=== PATIENT | male | born 1975 | race Caucasian/White ===

== ENCOUNTER 2019-06-28 07:03 | Outpatient (CLI) | payer OTHER, SELFPAY ==
[2019-06-28 07:15] VITALS: BMI 36.6
--- NOTE | 2019-06-28 07:24 | ECG_ITS ---
NAME OF STUDY: DOBUTAMINE STRESS ECHOCARDIOGRAM INDICATION: [Chest Pain, ] This study is dictated under a different electronic health record. Please see that EHR for details. Electronically Signed On 06-28-2019 15:41:14 CDT by Patrick Andrews M.D. [email or web address]
--- NOTE | 2019-06-28 07:42 | USCV_ITS ---
Meena Leong Age: 44 Gender: M : 1975 Exam Date: 06/28/2019 07:34 Ordering Phys: Efra Hinojosa MD ([email or web address] Technologist: Ld Stanton Exam Location: [facility] – [place] Indication: Chest pain Rhythm: Sinus Patient History: HTN, DM, HLD, Family Hx CAD Cardiac Medications: Medications in past 24 hours: Losartan Contrast: Total Dose (mL): Stress Results Protocol: Pharmacologic Peak Dose (???g/kg/min): 40 Duration (min:sec): 11:40 Atropine:(mg) 0.5 Target HR: 149 Double Product: 15042 Resting HR: 88 Resting BP: 151 / 120 Peak HR: 149 Peak BP: 209 / 120 Max Predicted HR: 175 85 % Max Predicted HR Stress Summary: The hemodynamic response to stress was normal. The patient's target heart rate was achieved. BP Response: Blood pressure 151/120 at baseline. Maximum blood pressure 209/95. Hypertensive blood pressure response Reason for Termination: The patients target heart rate was achieved Cardiac Symptoms: None ECG Analysis Resting EKG: Resting EKG reveals sinus rhythm with normal axis and intervals and is a normal tracing. Stress EKG: No ST or T wave changes associated with dobutamine infusion. Rare premature ventricular contraction at the end of the infusion. Arrhythmia: Rare PVCs MEASUREMENTS (Male/Female) Normal Values FINDINGS Baseline echocardiogram reveals normal chamber sizes and normal wall motion. With dobutamine infusion there were no wall motion disturbances to suggest ischemia. CONCLUSIONS Dobutamine stress echo without evidence for ischemia or infarction. Dr. Patrick Andrews MD (Electronically Signed) Final Date: 28 June 2019 15:43 S
[2019-06-28] MEDS: sodium chloride 0.9% 250 ML 75 ML IV (07:50)
[2019-06-28] MEDS: DOBUTtamine 200 MG in sodium chloride 0.9% 34 ML 18 MG IV (07:53)
[2019-06-28] MEDS: atropine 0.1 mg/mL Syr 10 mL 0.5 MG IVP (07:59)
[2019-06-28 08:10] VITALS: BP 173/91; PULSE 100
== END 2019-06-28 07:04 | disposition home or self-care (01) ==
PROVIDERS: Family Provider Nurse Practitioner; PCP Nurse Practitioner; Visit Provider Internal Medicine Cardiovascular Disease
DX: R94.31 Abnormal electrocardiogram [ECG] [EKG] (principal); I10 Essential (primary) hypertension; E11.9 Type 2 diabetes mellitus without complications; E78.5 Hyperlipidemia, unspecified
CPT/HCPCS: 93017; 93350; J0461; J1250; J7050

== ENCOUNTER 2020-08-25 08:49 | Outpatient (CLI) | payer OTHER, SELFPAY ==
--- NOTE | 2020-08-25 09:03 | FL_ITS ---
WS: [id number] MODIFIED BARIUM SWALLOW HISTORY: Other dysphagia FLUOROSCOPY TIME: 1.2 minutes. Modified barium swallow was performed by the speech pathologist. Fluoroscopy was provided with the pa tient in a lateral projection. Multiple food consistencies were provided. Patient swallowed all food consistencies without difficulty. No aspiration. There is a very minimal a [place] of penetration during thin liquids. Patient swallowed the barium tablet without difficulty. FL/FL barium swallow modifd [id number] IMPRESSION: 1. No aspiration. 2. No significant swallowing deficits. Please see speech therapist report also for recommendations.
== END 2020-08-25 08:50 | disposition home or self-care (01) ==
LOC: RAD 08:52
PROVIDERS: PCP Nurse Practitioner; Visit Provider Specialist
DX: R13.10 Dysphagia, unspecified (principal)
CPT/HCPCS: 74230; 92611

== ENCOUNTER 2020-08-26 09:25 | Outpatient (CLI) | payer OTHER, SELFPAY ==
--- NOTE | 2020-08-26 09:34 | CT_ITS ---
WS: [id number] CT NECK TECHNIQUE: Contrast-enhanced CT of the neck with coronal and sagittal reformatted images. CLINICAL INFORMATION: DYSPHAGIA COMPARISON: None. DLP: 429.[address] scans at [facility] use at least one of these dose optimization techniques: automat ed exposure control; mA and/or kV adjustment per patient size (includes targeted exams where dose is matched to clinical indication); or iterative reconstruction. FINDINGS: Parotid glands are normal. Normal submandibular glands. Prominent lobulated enlarged uvula with marke d narrowing of the oropharynx. Prominent enhancing inguinal tonsils. Normal epiglottis. No evidence o f glottic or subglottic mass. Normal piriform sinuses. Numerous prominent bilateral cervical chain lymph nodes not pathologically enlarged. These are likely reactive. Mastoid air cells are well aerated. Mild spondylitic changes cervical spine. CT/CT neck w con* [id number] IMPRESSION: 1. Prominent lobulated uvula with narrowing of the posterior oropharynx. Recom mend direct visualization. 2. Prominent enhancing wall tonsils with filling of the vallecula. Recommend d irect visualization. 3. Normal glottis and subglottic airway. 4. Prominent bilateral cervical chain lymph nodes not pathologically enlarged. These are likely reactive. 5. No other significant findings.
[2020-08-26] MEDS: iohexol 300 mg/mL 100 mL Btl IV (09:59)
--- NOTE | 2020-08-26 10:24 | FL_ITS ---
WS: [id number] ESOPHAGRAM TECHNIQUE: Double contrast examination was performed with thin and thick barium. Upright and DÍAZ imag es were obtained. CLINICAL INFORMATION: DYSPHAGIA COMPARISON: None. FINDINGS: Delayed transit of the barium tablet in the posterior oropharynx due to oropharyngeal airwa y narrowing at the level of the uvula also seen on the contrast-enhanced neck CT. Swallowing: No evidence of aspiration or penetration. Esophagus: Mild esophageal dysmotility. No stricture or narrowing. No significant hiatal hernia. Gastroesophageal reflux: No significant reflux in the upright or supine imaging Fluoroscopy time: 2.6 minutes. FL/FL barium swallow [id number] IMPRESSION: 1. Mild esophageal dysmotility. No stricture or obstructing mass. 2. No significant esophageal hiatal hernia. No active reflux. 3. Delayed transit of the barium tablet in the oropharynx/hypopharynx due to p haryngeal stenosis better seen on the neck CT. Prominent uvula contributes to s tenosis.
== END 2020-08-26 09:26 | disposition home or self-care (01) ==
LOC: RADWPI 09:27
PROVIDERS: PCP Nurse Practitioner; Visit Provider Specialist
DX: R13.10 Dysphagia, unspecified (principal)
CPT/HCPCS: 70491; 74220; Q9967

== ENCOUNTER 2020-09-15 10:26 | Outpatient (CLI) | payer OTHER, SELFPAY ==
--- NOTE | 2020-09-15 11:00 | USCV_ITS ---
Meena Leong Age: 45 Gender: M : 1975 Exam Date: 09/15/2020 10:45 Ordering Phys: Efra Hinojosa MD ([email or web address]) Technologist: Exam Location: [facility] [place] Indication: HISTORY: PROCEDURES: Bilateral duplex Venous Insufficiency study of the Deep and Superficial systems was carried out according to normal protocol with the patient in supine positon for deep system and dependent position for the superficial system. FINDINGS: All deep veins demonstrated compressibility without evidence of intraluminal thrombus or increased echogenicity. Spectral analysis of Doppler signals demonstrates normal response to compression maneuvers indicating patency without obstruction. Reflux determinations were made with the patient in the dependent position, the weight being on the contralateral leg. Vein measurements and reflux times are listed below were applicable. THERE IS SIGNIFICANT REFLUX ON RT SIDE THE PATIENT WOULD BE A GOOD CANIDATE FOR ABLATION. CONCLUSIONS 1. No evidence of DVT in the above-mentioned identifiable veins. 2. Significant venous reflux of greater than 500 ms were noted at the mid, distal and below-knee greater saphenous vein segments on the right side. These venous segments were measuring 0.41 to 0.46 cm in diameter and they were more than 1 cm deep from the surface. 3. No significant venous reflux on the left side Dr Efra Hinojosa MD FAC (Electronically Signed) Final Date: 16 September 2020 08:36 S
== END 2020-09-15 10:27 | disposition home or self-care (01) ==
PROVIDERS: PCP Nurse Practitioner; Visit Provider Internal Medicine Cardiovascular Disease
DX: I87.2 Venous insufficiency (chronic) (peripheral) (principal); R23.8 Other skin changes
CPT/HCPCS: 93970

== ENCOUNTER 2020-10-12 20:00 | Outpatient (CLI) | payer OTHER, SELFPAY | END 2020-10-12 20:01 | disposition home or self-care (01) | LOC: SLEEP 10-13 09:51 | PROVIDERS: PCP Nurse Practitioner; Visit Provider Specialist | DX: G47.33 Obstructive sleep apnea (adult) (pediatric) (principal) | CPT/HCPCS: 95810 ==

== ENCOUNTER → 2021-02-09 08:08 | Outpatient (BNVA) | payer OTHER, SELFPAY | PROVIDERS: PCP Nurse Practitioner; Referring Provider Nurse Practitioner; Visit Provider Internal Medicine | DX: E11.65 Type 2 diabetes mellitus with hyperglycemia (principal); E66.9 Obesity, unspecified; E78.2 Mixed hyperlipidemia; Z79.84 Long term (current) use of oral hypoglycemic drugs; Z68.35 Body mass index [BMI] 35.0-35.9, adult | CPT/HCPCS: 99204 ==

== ENCOUNTER → 2021-05-10 09:09 | Outpatient (BNVA) | payer OTHER, SELFPAY | PROVIDERS: PCP Nurse Practitioner; Visit Provider Internal Medicine | DX: E11.65 Type 2 diabetes mellitus with hyperglycemia (principal); E66.9 Obesity, unspecified; E78.2 Mixed hyperlipidemia; Z68.36 Body mass index [BMI] 36.0-36.9, adult; Z79.84 Long term (current) use of oral hypoglycemic drugs | CPT/HCPCS: 99214 ==

== ENCOUNTER → 2021-07-29 14:11 | Outpatient (BNVA) | payer OTHER, SELFPAY | PROVIDERS: PCP Nurse Practitioner; Visit Provider Internal Medicine | DX: E11.65 Type 2 diabetes mellitus with hyperglycemia (principal); E78.2 Mixed hyperlipidemia; E66.9 Obesity, unspecified; Z68.34 Body mass index [BMI] 34.0-34.9, adult; Z79.84 Long term (current) use of oral hypoglycemic drugs | CPT/HCPCS: 99214 ==

== ENCOUNTER → 2021-11-02 14:00 | Outpatient (BNVA) | payer OTHER, SELFPAY | PROVIDERS: PCP Nurse Practitioner; Visit Provider Internal Medicine | DX: E11.65 Type 2 diabetes mellitus with hyperglycemia (principal); E78.2 Mixed hyperlipidemia; E66.9 Obesity, unspecified; Z79.84 Long term (current) use of oral hypoglycemic drugs; Z68.33 Body mass index [BMI] 33.0-33.9, adult | CPT/HCPCS: 99214 ==

== ENCOUNTER → 2022-02-01 13:57 | Outpatient (BNVA) | payer OTHER, SELFPAY | PROVIDERS: PCP Nurse Practitioner; Visit Provider Internal Medicine | DX: E11.65 Type 2 diabetes mellitus with hyperglycemia (principal); E78.2 Mixed hyperlipidemia; Z79.84 Long term (current) use of oral hypoglycemic drugs | CPT/HCPCS: 99214 ==

== ENCOUNTER 2022-02-18 12:03 | Outpatient (CLI) | payer OTHER, SELFPAY ==
--- NOTE | 2022-02-18 12:08 | CT_ITS ---
WS: [id number] CT HEAD TECHNIQUE: Noncontrast CT of the head obtained from the skullbase to the vertex. CLINICAL INFORMATION: MEMORY LOSS/HX OF MULTIPLE HEAD INJURIES COMPARISON: None. DLP: 1137.[address] scans at [facility] use at least one of these dose optimization techniques: automated e xposure control; mA and/or kV adjustment per patient size (includes targeted exams where dose is matc hed to clinical indication); or iterative reconstruction. FINDINGS: No evidence of intracranial hemorrhage or mass effect. Ventricular system and basal cisterns are patel nt. No extra-axial fluid collections. No evidence of mass or mass effect. Normal garcia-white different iation. Mild mucosal thickening in the paranasal sinuses. Partial opacification of the ethmoid air cells and sphenoid sinuses. Frontal sinuses are well aerated. Mastoid air cells are well aerated aerated. Mild mucosal thickening LEFT mastoid tip. Normal posterior nasopharynx. CT/CT head wo con* [id number] IMPRESSION: 1. No evidence of intracranial hemorrhage or mass effect. 2. Normal garcia-white differentiation. 3. Mild ethmoid and sphenoid sinusitis. 4. Mild mucosal thickening LEFT mastoid air cells. 5. No acute intracranial findings.
== END 2022-02-18 12:04 | disposition home or self-care (01) ==
LOC: RAD 12:04
PROVIDERS: PCP Nurse Practitioner; Visit Provider Nurse Practitioner
DX: R41.3 Other amnesia (principal); J32.2 Chronic ethmoidal sinusitis; J32.3 Chronic sphenoidal sinusitis; Z87.828 Personal history of other (healed) physical injury and trauma
CPT/HCPCS: 70450

== ENCOUNTER 2022-07-28 09:17 | Outpatient (CLI) | payer OTHER, SELFPAY ==
[2022-07-28 10:03] LABS: Alanine Aminotransferase 42 U/L (0-41); Albumin Level 4.3 g/dL (3.5-5.2); Alkaline Phosphatase 77 U/L (40-130); Anion Gap 14.4 (5-19); Aspartate Amino Transferase 28 U/L (0-40); Blood Urea Nitrogen 23 mg/dL (6-20); Carbon Dioxide 29 mmol/L (22-29); Chloride 103 mmol/L (98-107); Chol HDL Ratio 4.02 mg/dL (1.0-5.00); Cholesterol 165 mg/dL (0-200); Globulin 2.9 g/dL (1.3-4.6); Glomerular Filtration Rate 71.4 mL/min (90-130); Glucose 165 mg/dL (65-115); HDL Cholesterol 41 mg/dL (60-100); LDL Cholesterol Calculated 82 mg/dL (50-129); Osmolality Calculated 301 mOsm/kg (285-295); Potassium 4.4 mmol/L (3.5-5.1); Sodium 142 mmol/L (136-145); Total Bilirubin 0.5 mg/dL (0.15-1.2); Total Protein 7.2 g/dL (6.6-8.7); Triglycerides 212 mg/dL (0-150)
[2022-07-28 10:07] LABS: Estmated Average Glucose 137; Hemoglobin A1C 6.4 % (4.0-6.0)
[2022-07-28 14:17] LABS: Creatinine Urine, Random 64 mg/dL (39-259); Microalbum Creatinine Ratio Ur 16 mg/dL (0-20); Microalbumin Random Urine 1 ug/dL (0-20)
== END 2022-07-28 09:18 | disposition home or self-care (01) ==
LOC: LAB 09:19
PROVIDERS: PCP Nurse Practitioner; Visit Provider Internal Medicine
DX: E11.65 Type 2 diabetes mellitus with hyperglycemia (principal); E78.2 Mixed hyperlipidemia
CPT/HCPCS: 36415; 80053; 80061; 82044; 83036

== ENCOUNTER → 2022-08-11 13:18 | Outpatient (BNVA) | payer OTHER, SELFPAY | PROVIDERS: PCP Nurse Practitioner; Visit Provider Internal Medicine | DX: E11.65 Type 2 diabetes mellitus with hyperglycemia (principal); E78.2 Mixed hyperlipidemia; Z79.84 Long term (current) use of oral hypoglycemic drugs | CPT/HCPCS: 99214 ==

== ENCOUNTER 2023-01-09 20:11 | Emergency (ER) | payer OTHER, SELFPAY ==
[2023-01-09 20:19] VITALS: BMI 34.5
[2023-01-09 20:21] VITALS: BP 139/99; PULSE 85; RESP 16; TEMP 36.4; O2SAT 95
--- NOTE | 2023-01-09 20:25 | W.ED.EXTPRO ---
HPI - Extremity Problem General: Chief complaint: Extremity Problem,Nontraumatic Stated complaint: right leg numbness, and pain Time Seen by Provider: 01/09/23 20:20 History of Present Illness: 47-year-old male patient comes in today for complaints of pain radiating down his right leg to calf. Patient also reports paresthesias in the leg. Patient has a history of lumbar surgery and diabetes mellitus. Patient reports no fever or chills. Patient appears nontoxic. Patient reports symptoms been going on for about 2 weeks now. Patient has been seen at primary care office and given a shot of Toradol and started on azithromycin. Azithromycin was used for anti-inflammatory effects. Patient completed the medicine but continues to have pain and discomfort which brought him to the ER tonight. Review of Systems General: Reports: 10 or more systems reviewed and unremarkable except in HPI and below Musc: Reports: back pain and extremity pain [facility] ED PFSH: Medical History Abnormal EKG An EKG was done in the office. It revealed normal sinus rhythm with a nonspecific T wave changes in the anterolateral leads. Abnormal skin color Allergic rhinitis Diabetes Elevated C-reactive protein (CRP) Gout Hyperlipidemia Hypertension Obesity (BMI 30-39.9) Sleep apnea Could not use CPAP Surgical History History of adenectomy Previous back surgery S/P tonsillectomy Family History Father No problems noted. Family/Other Diabetes Suicide Other Cancer Cirrhosis Denies family history of CAD (coronary artery disease) Clotting disorder Dementia Anesthesia complication Bleeding disorder Lung disease Stroke Social History Smoking and tobacco status: never smoked Alcohol intake: current Alcohol intake frequency: holidays/special occasions only Substance/Drug Use: current Substance/Drug use frequency: Special occassions/opportunity only Physical Exam Const: COMMON NORMALS: alert HENMT: COMMON NORMALS: normocephalic HEAD & SCALP: normocephalic Neck/C-Spine: COMMON NORMALS: full ROM Resp: COMMON NORMALS: normal respiratory effort Cardio: COMMON NORMALS: regular rate RATE: regular rate Back/Pelvis: THORACIC SPINE/UPPER BACK: Yes normal to inspection LUMBAR SPINE/LOWER BACK: Yes lumbar spinal tenderness (L4-L5 area) and Yes paraspinal muscle tenderness Extremity: COMMON NORMALS: normal to inspection and no pedal edema Neuro: SENSORIUM/ORIENTATION: Yes alert and Yes other (Increase sensitivity to right lower extremity) Skin: COMMON NORMALS: no rashes or lesions noted and turgor normal GENERAL SKIN EXAM: no rashes or lesions noted and turgor normal Course Vital Signs: Vital signs: Vital Signs Temperature 97.6 F 01/09/23 20:21 Pulse Rate 85 01/09/23 20:21 Respiratory Rate 16 01/09/23 20:21 Blood Pressure 139/99 01/09/23 20:21 Pulse Oximetry 95 01/09/23 20:21 Oxygen Delivery Me thod Room Air 01/09/23 20:21 MDM - Extremity (Nontraumatic) Medical Decision Making 47-year-old male patient comes in today for complaints of low back and right lower extremity pain and discomfort. On exam patient has no edema to the extremity. No redness or induration is noted to the extremity. Patient does have some tenderness along L5 L4 area of the lumbar spine. Patient has increased muscle tightness and tenderness of the right lumbar paraspinous muscles. Differential diagnosis includes but not limited to intervertebral disc disease, facet arthropathy, lumbar radiculopathy, cauda equina syndrome. No signs of serious illness or injury is noted. Believe this is an exacerbation of chronic pain. Patient was given a shot of Toradol and 1 hydrocodone tablet in the ER. Patient be written for some hydrocodone and celecoxib 200 mg to use until follow-up with primary care on Monday for reevaluation and medication changes as needed. Requested patient contact Dr. Saenz's office orthopedic spine for further evaluation and treatment through referral. No radiology studies performed this visit Discharge Plan Discharge Patient Disposition: Home Clinical Impression: Left lumbar radiculopathy Condition: Stable Prescriptions: New hydrocodone-acetaminophen 7.5-325 mg tablet 1 tab PO Q8H PRN (Reason: pain (scale score 7-10)) Qty: 12 0RF celecoxib 200 mg capsule 200 mg PO BID Qty: 20 0RF No Action amlodipine 10 mg tablet 10 mg PO DAILY metformin 1,000 mg tablet 1,000 mg PO BID Jardiance 25 mg tablet 25 mg PO DAILY Qty: 90 3RF Rx Instructions: Take one tablet by mouth daily. losartan 100 mg tablet 100 mg PO DAILY 30 Days Qty: 30 5RF atorvastatin 40 mg tablet 40 mg PO DAILY pregabalin [Lyrica] 150 mg capsule 150 mg PO BID (DME) Dexcom G6 Production Machine Operator Misc See Rx Instructions .Route Qty: 1 0RF Rx Instructions: Check BS 4 times a day. (DME) Dexcom G6 Transmitter Device See Rx Instructions .Route Qty: 3 3RF Rx Instructions: Change every 90 days. Ozempic 1 mg/dose (2 mg/1.5 mL) pen injector 1 mg SUBCUT .WEEKLY Qty: 3 3RF Rx Instructions: Administer 1 mg subcut weekly Victoza 3-Mario 0.6 mg/0.1 mL (18 mg/3 mL) pen injector 1.2 mg SUBCUT DAILY Qty: 18 3RF (DME) Dexcom G6 Sensor Device See Rx Instructions .Route Qty: 9 0RF Rx Instructions: Change every 10 days. Discharge Orders: Discharge ED (Routine); Ordered 01/09/23 Ordered By: Julián Barrientos Referrals: Joey Saenz DO [Physician] - Betty Shanks FNP [Primary Care Provider] - Discharge Diet: Usual diet Discharge Activity: Increase activity as tolerated Patient Instructions: Lumbar Radiculopathy (ED), Opioid Safety Activity Restrictions/Additional Instructions: Try to maintain activity as much as possible. Drink plenty of water with medications. Use ice or heat for further pain relief. Follow-up with primary physician primary care sports medicine as needed. Keep appointment for Monday with with provider for changes in your medication. Return to ED for worsening symptoms such as loss of bowel or bladder control, fever greater than 100.4, or new concerns. Coding Level of Care Code ED Road Consultant for Sonia Mullen
[2023-01-09] MEDS: HYDROcodone-acetaminophen 7.5-325 mg Tablet 1 TAB PO (20:37)
[2023-01-09] MEDS: ketorolac 60 mg/2 mL INJ IM (20:37)
[2023-01-09 20:57] VITALS: BP 139/99; PULSE 85; RESP 16; TEMP 36.4; O2SAT 95
== END 2023-01-09 20:59 | disposition home or self-care (01) ==
PROVIDERS: Emergency Provider Nurse Practitioner Family; PCP Nurse Practitioner
DX: M54.16 Radiculopathy, lumbar region (principal); Z79.84 Long term (current) use of oral hypoglycemic drugs; E11.9 Type 2 diabetes mellitus without complications; E78.5 Hyperlipidemia, unspecified; I10 Essential (primary) hypertension
CPT/HCPCS: 96372; 99284; J1885

== ENCOUNTER 2023-01-17 08:45 | Outpatient (CLI) | payer OTHER, SELFPAY ==
[2023-01-17 10:04] LABS: Alanine Aminotransferase 53 U/L (0-41); Albumin Level 4.2 g/dL (3.5-5.2); Alkaline Phosphatase 74 U/L (40-130); Anion Gap 13.3 (5-19); Aspartate Amino Transferase 28 U/L (0-40); Blood Urea Nitrogen 12 mg/dL (6-20); Calcium 8.9 mg/dL (8.5-10.5); Carbon Dioxide 29 mmol/L (22-29); Chloride 103 mmol/L (98-107); Chol HDL Ratio 4.22 mg/dL (1.0-5.00); Cholesterol 152 mg/dL (0-200); Globulin 2.9 g/dL (1.3-4.6); Glomerular Filtration Rate 90.1 mL/min (90-130); Glucose 126 mg/dL (65-115); HDL Cholesterol 36 mg/dL (60-100); LDL Cholesterol Calculated 73 mg/dL (50-129); LDL HDL Ratio 2.03 RATIO (0.00-3.22); Osmolality Calculated 293 mOsm/kg (285-295); Potassium 4.3 mmol/L (3.5-5.1); Sodium 141 mmol/L (136-145); Total Bilirubin 0.5 mg/dL (0.15-1.2); Total Protein 7.1 g/dL (6.6-8.7); Triglycerides 214 mg/dL (0-150)
[2023-01-17 10:19] LABS: Estmated Average Glucose 143; Hemoglobin A1C 6.6 % (4.0-6.0)
[2023-01-17 13:02] LABS: Creatinine Urine, Random 118 mg/dL (39-259); Microalbum Creatinine Ratio Ur 8 mg/dL (0-20); Microalbumin Random Urine 1 ug/dL (0-20)
== END 2023-01-17 08:46 | disposition home or self-care (01) ==
PROVIDERS: PCP Nurse Practitioner; Visit Provider Internal Medicine
DX: E11.65 Type 2 diabetes mellitus with hyperglycemia (principal); E78.2 Mixed hyperlipidemia
CPT/HCPCS: 36415; 80053; 80061; 82044; 83036

== ENCOUNTER → 2023-01-27 10:46 | Outpatient (BNVA) | payer OTHER, SELFPAY | PROVIDERS: PCP Nurse Practitioner; Visit Provider Internal Medicine | DX: E78.2 Mixed hyperlipidemia; E11.65 Type 2 diabetes mellitus with hyperglycemia; Z79.84 Long term (current) use of oral hypoglycemic drugs | CPT/HCPCS: 99214 ==

== ENCOUNTER 2023-02-03 08:31 | Outpatient (CLI) | payer OTHER, SELFPAY ==
--- NOTE | 2023-02-03 08:37 | MR_ITS ---
WS: [id number] MRI LUMBAR SPINE NONCONTRAST HISTORY: Chronic back pain. Pain radiating to RIGHT knee. COMPARISON: None available. TECHNIQUE: Sagittal and axial multisequence imaging is submitted. Normal lumbar alignment with no compression fractures or marrow edema. Moderate to space narrowing and desiccation at L5-S1. Fatty marrow replacement in the inferior endpla te of L5. Conus terminates normally at L1. L1-L2: Normal. L2-L3: Mild ligamentum flavum and facet arthritis. No stenosis. L3-L4: Mild annular disc bulging encroaching upon the subarticular recesses. There is mild disc conta ct on the traversing L4 nerve roots. Mild ligamentum flavum with moderate facet arthritis. L4-L5: Diffuse annular disc bulging very shallow central disc protrusion. Marked ligamentum flavum an d facet arthritis. RIGHT hemilaminectomy defect. Moderate to severe central, bilateral subarticular r ecess and mild foraminal stenosis, greater on the RIGHT than the LEFT. There is significant contact u elke the traversing L5 nerve roots. L5-S1: Diffuse marked annular disc bulging and osteophytic ridging. Disc and osteophyte encroach upon the S1 nerve roots in the subarticular recesses. Moderate to severe central stenosis. Marked ligamen maggie flavum and facet arthritis. Moderate bilateral foraminal stenosis with disc contacting the L5 ner ve roots also. IMPRESSION: 1. L5-S1: Moderate to severe central stenosis with moderate bilateral foraminal stenosis. There is di sc and osteophyte contact on the L5 and S1 nerve roots. 2. L4-L5: Moderate to severe central, bilateral subarticular recess and mild foraminal stenosis. Sign ificant disc contact on the traversing L5 nerve roots. 3. L4-5 RIGHT hemilaminectomy defect. 4. L3-4: Mild disc encroachment upon the traversing L4 nerve roots and moderate facet joint arthritis .
== END 2023-02-03 08:32 | disposition home or self-care (01) ==
LOC: RAD 08:32
PROVIDERS: PCP Nurse Practitioner; Visit Provider Nurse Practitioner
DX: M48.061 Spinal stenosis, lumbar region without neurogenic claudication (principal); M54.50 Low back pain, unspecified; G89.29 Other chronic pain
CPT/HCPCS: 72148

== ENCOUNTER 2023-02-19 01:47 | Emergency (ER) | payer OTHER, SELFPAY ==
[2023-02-19 01:52] VITALS: BP 170/107; PULSE 87; RESP 20; TEMP 36.7; O2SAT 95; BMI 34.4
[2023-02-19 02:08] LABS: Basophils # 0.1 10^3/uL (0.0-0.1); Basophils % 0.4 %; Hematocrit 51.3 % (37-53); Lymphocytes # 2.2 10^3/uL (0.8-4.8); Lymphocytes % 17.2 %; Mean Corpuscular HGB Conc 32.9 g/dL (30-55); Mean Platelet Volume 11.6 fL (7.4-10.4); Monocytes # 0.5 10^3/uL (0.2-0.9); Monocytes % 4.2 %; Neutrophils # 9.76 10^3/uL (1.8-7.7); Nucleated Red Blood Cells % 0 %; Platelet Count 281 10^3/cmm (157-399); Red Blood Count 5.64 10^6/uL (3.85-5.65); Red Cell Distribution Width 13.2 % (12.1-15.1); White Blood Count 12.53 10^3/uL (3.29-11.43)
--- NOTE | 2023-02-19 02:14 | CTR_ITS ---
PROCEDURE INFORMATION: Exam: CT Abdomen And Pelvis With Contrast Exam date and time: 02/19/2023 3:28 AM Age: 47 years old Clinical indication: Nausea and vomiting; Abdominal pain; Patient HX: Epigastric pain with n/v. ; Additional info: Epigastric pain vomiting leukocytosis TECHNIQUE: Imaging protocol: Computed tomography of the abdomen and pelvis with contrast. Radiation optimization: All CT scans at this facility use at least one of these dose optimization techniques: automated exposure control; mA and/or kV adjustment per patient size (includes targeted exams where dose is matched to clinical indication); or iterative reconstruction. Contrast material: OMNI 350; Contrast volume: 100 ml; Contrast route: INTRAVENOUS (IV); REPORTING DATA: Count of CT and Cardiac NM exams in prior 12 months: This patient has received 0 known CTs and 0 known cardiac nuclear medicine studies in the 12 months prior to the current study. COMPARISON: MR lumbar spine wo con* [id number] 02/03/2023 9:00 AM RADIATION DOSE METRICS: Total DLP (mGy-cm): 1096.92 FINDINGS: Liver: Fatty infiltration of the liver. Gallbladder and bile ducts: Normal. No calcified stones. No ductal dilation. Pancreas: Normal. No ductal dilation. Spleen: Normal. No splenomegaly. Adrenal glands: Normal. No mass. Kidneys and ureters: Normal. No hydronephrosis. Stomach and bowel: Few scattered colonic diverticula. No evidence of diverticulitis. Appendix: No evidence of appendicitis. Intraperitoneal space: Unremarkable. No free air. No significant fluid collection. Vasculature: Mild atherosclerotic change of the abdominal aorta Lymph nodes: Unremarkable. No enlarged lymph nodes. Urinary bladder: Unremarkable as visualized. Reproductive: Unremarkable as visualized. Bones/joints: Degenerative change of the L5/S1 level Soft tissues: Unremarkable. CT/CT abdomen pelvis w con* [id number] IMPRESSION: 1. No acute abdominal or pelvic abnormality appreciated. 2. Mild fatty infiltration of the liver. 3. There is a few scattered diverticuli. No evidence of diverticulitis.
[2023-02-19 02:21] LABS: Ketone (Acetest) Serum Negative (Negative)
--- NOTE | 2023-02-19 02:27 | W.ED.ABDPA2 ---
HPI - Abdominal Pain General: Chief Complaint: Abdominal Pain Stated Complaint: vomiting Time Seen by Provider: 02/19/23 01:50 [employer]DOCTORAL RESEARCH FELLOW History of Present Illness: 47-year-old male with a history of diabetes complaining of epigastric pain and vomiting for the past 3 days or so. No report of diarrhea or blood in the stool. No definite fever. No known sick contacts. No abdominal surgeries. He states that his sugars have not been extremely elevated. Associated Symptoms: Reports chills, nausea and vomiting; Denies fever(s), hematochezia and hematemesis Review of Systems Const: Reports: chills; Denies: fever(s) ENMT: Denies: throat pain Card: Denies: chest pain Resp: Denies: dyspnea, productive cough or non-productive cough GI: Reports: abdominal pain, nausea and vomiting; Denies: hematemesis or hematochezia : Denies: flank pain Skin/Breast: Denies: rash PFSH ED PFSH: Medical History Abnormal EKG An EKG was done in the office. It revealed normal sinus rhythm with a nonspecific T wave changes in the anterolateral leads. Abnormal skin color Allergic rhinitis Diabetes Elevated C-reactive protein (CRP) Gout Hyperlipidemia Hypertension Obesity (BMI 30-39.9) Sleep apnea Could not use CPAP Surgical History History of adenectomy Previous back surgery S/P tonsillectomy Family History Father No problems noted. Family/Other Diabetes Suicide Other Cancer Cirrhosis Denies family history of CAD (coronary artery disease) Clotting disorder Dementia Anesthesia complication Bleeding disorder Lung disease Stroke Social History Smoking and tobacco/nicotine status: never used tobacco/nicotine Alcohol intake: current Alcohol intake frequency: holidays/special occasions only Substance/Drug Use: current Substance/Drug use frequency: Special occassions/opportunity only Physical Exam Const: COMMON NORMALS: no acute distress GENERAL APPEARANCE: cooperative and ill appearing (Mildly) HENMT: COMMON NORMALS: normocephalic, atraumatic and Normal external nose present HEAD & SCALP: normocephalic and atraumatic FACE & SINUS: normal facial exam and face symmetric NOSE: Normal external nose present Eye: COMMON NORMALS: Equal, round and reactive pupils present and EOMs intact bilaterally PUPIL: Yes Equal, round and reactive pupils present Neck/C-Spine: GENERAL: Yes trachea midline Chest: CHEST: Yes Symmetrical chest wall rise Resp: COMMON NORMALS: normal respiratory effort, No retractions, No use of accessory muscles and clear to auscultation bilaterally AUSCULTATION: clear to auscultation bilaterally Cardio: COMMON NORMALS: regular rate and regular rhythm RATE: regular rate RHYTHM: regular rhythm GI: COMMON NORMALS: Normal to inspection, nondistended, normoactive bowel sounds present PALPATION: Yes Tenderness to palpation present (GI) (Epigastric) Extremity: COMMON NORMALS: no pedal edema Neuro: KAITLIN COMA SCALE: document GCS findings [place] coma scale eye opening: Spontaneous [place] coma scale verbal response: Orientated Kaitlin coma scale motor response: Obey commands Kaitlin coma scale total score: 15 SENSORY EXAM: Yes extremities (intact) Psych: COMMON NORMALS: speech normal SPEECH: Yes normal speech Skin: COMMON NORMALS: no rashes or lesions noted GENERAL SKIN EXAM: no rashes or lesions noted Course Vital Signs: Vital signs: Vital Signs Temperature 98.1 F 02/19/23 01:52 CS T Pulse Rate 87 02/19/23 01:52 CS T Respiratory Rate 20 H 02/19/23 01:52 CS T Blood Pressure 170/107 02/19/23 01:52 CS T Pulse Oximetry 95 02/19/23 01:52 CS T MDM - Abdominal Pain Medical Decision Making Vitals are stable. Pain is essentially resolved after 1 mg of Dilaudid, 4 mg Zofran, and GI cocktail. White blood cell count is 12.5. Other laboratory indices show a lactic acid of 2.9, but CRP is only 3. Normal anion gap. No ketones in the serum. Urine drug screen positive for marijuana. CT of the abdomen pelvis shows nothing acute. With significant improvement in his symptoms, he will be allowed discharge. To return for worsening symptoms. Lab Data 02/19/23 01:55 [employer]CTOR[employer]EARCH FELLOW 02/19/23 01:55 [employer]CTOR[employer] RESEARCH FELLOW Labs/Radiology: Radiology Impressions Abdomen/Pelvis CT 02/19/23 02:14 IMPRESSION: 1. No acute abdominal or pelvic abnormality appreciated. 2. Mild fatty infiltration of the liver. 3. There is a few scattered diverticuli. No evidence of diverticulitis. Laboratory Results WBC 12.53 10^3/uL (3.29-11.43) H 02/19/23 01:55 [employer] FELLOW RBC 5.64 10^6/uL (3.85-5.65) 02/19/23 01:55 [employer]DOCTOR[employer]EARCH FELLOW Hgb 16.90 g/dL (11.27-16.99) 02/19/23 01:55 [employer]CTOR[employer]EARCH FELLOW Hct 51.3 % (37-53) 02/19/23 01:55 [employer]CTOR[employer]EARCH FELLOW MCV 91.0 fl (82-101) 02/19/23 01:55 [employer]CTOR[employer]EARCH FELLOW MCH 30.0 pg (27-33) 02/19/23 01:55 [employer]CTOR[employer] FELLOW MCHC 32.9 g/dL (30-55) 02/19/23 01:55 [employer]CTOR[employer]EARCH FELLOW RDW 13.2 % (12.1-15.1) 02/19/23 01:55 [employer]CTOR[employer] RESEARCH FELLOW Plt Count 281 10^3/cmm (157-399) 02/19/23 01:55 [employer]CTOR[employer]EARCH FELLOW MPV 11.6 fL (7.4-10.4) H 02/19/23 01:55 [employer]CTOR[employer]EARCH FELLOW Neut % (Auto) 78.0 % 02/19/23 01:55 [employer]DOCTOR[employer] RESEARCH FELLOW Lymph % (Auto) 17.2 % 02/19/23 01:55 [employer]DOCTORAL RESEARCH FELLOW [place] % (Auto) 4.2 % 02/19/23 01:55 [employer]DOCTORAL RESEARCH FELLOW Eos % (Auto) 0.0 % 02/19/23 01:55 [employer]CTOR[employer] RESEARCH FELLOW Baso % (Auto) 0.4 % 02/19/23 01:55 [employer]DOCTORAL RESEARCH FELLOW Neut # (Auto) 9.76 10^3/uL (1.8-7.7) H 02/19/23 01:55 [employer]DOCTOR[employer] RESEARCH FELLOW Lymph # (Auto) 2.2 10^3/uL (0.8-4.8) 02/19/23 01:55 [employer]DOCTORAL RESEARCH FELLOW [place] # (Auto) 0.5 10^3/uL (0.2-0.9) 02/19/23 01:55 [employer]DOCTORAL RESEARCH FELLOW Eos # (Auto) 0.0 10^3/uL (0.0-0.8) 02/19/23 01:55 [employer]DOCTORAL RESEARCH FELLOW Baso # (Auto) 0.1 10^3/uL (0.0-0.1) 02/19/23 01:55 [employer]CTOR[employer] RESEARCH FELLOW Nucleated RBC % (auto) 0 % 02/19/23 01:55 [employer]DOCTOR[employer] RESEARCH FELLOW Nucleated RBCs # 0.0 /100WBC 02/19/23 01:55 [employer]CTOR[employer]EARCH FELLOW Sodium 138 mmol/L (136-145) 02/19/23 01:55 [employer]DOCTOR[employer] RESEARCH FELLOW Potassium 4.1 mmol/L (3.5-5.1) 02/19/23 01:55 [employer]CTOR[employer]EARCH FELLOW Chloride 97 mmol/L (98-107) L 02/19/23 01:55 [employer]DOCTORAL [employer]EARCH FELLOW Carbon Dioxide 26 mmol/L (22-29) 02/19/23 01:55 [employer]DOCTORAL RESEARCH FELLOW Anion Gap 19.1 (5-19) H 02/19/23 01:55 [employer]DOCTORAL RESEARCH FELLOW BUN 18 mg/dL (6-20) 02/19/23 01:55 POSTDOCTORAL RESEARCH FELLOW Creatinine 1.0 mg/dL (0.7-1.2) 02/19/23 01:55 POSTDOCTORAL RESEARCH FELLOW GFR Calculation 79.8 mL/min (90-130) L 02/19/23 01:55 [employer]DOCTOR[employer]EARCH FELLOW Glucose 187 mg/dL (65-115) H 02/19/23 01:55 [employer]DOCTORAL RESEARCH FELLOW Calculated Osmolality 293 mOsm/kg (285-295) 02/19/23 01:55 [employer]DOCTORAL RESEARCH FELLOW Lactic Acid 2.9 mmol/L (0.5-2.2) H 02/19/23 02:07 Calcium 9.9 mg/dL (8.5-10.5) 02/19/23 01:55 [employer]DOCTORAL [employer]EARCH FELLOW Total Bilirubin 0.9 mg/dL (0.15-1.2) 02/19/23 01:55 [employer]DOCTORAL RESEARCH FELLOW AST 34 U/L (0-40) 02/19/23 01:55 [employer]DOCTORAL RESEARCH FELLOW ALT 75 U/L (0-41) H 02/19/23 01:55 POSTDOCTORAL RESEARCH FELLOW Alkaline Phosphatase 77 U/L (40-130) 02/19/23 01:55 POSTDOCTORAL RESEARCH FELLOW C-Reactive Protein 3.0 mg/L (0.0-4.9) 02/19/23 01:55 POSTDOCTORAL RESEARCH FELLOW Total Protein 8.3 g/dL (6.6-8.7) 02/19/23 01:55 [employer]DOCTORAL RESEARCH FELLOW Albumin 4.9 g/dL (3.5-5.2) 02/19/23 01:55 [employer]DOCTORAL RESEARCH FELLOW Globulin 3.4 g/dL (1.3-4.6) 02/19/23 01:55 [employer]DOCTORAL RESEARCH FELLOW Lipase 19 U/L (13-60) 02/19/23 01:55 [employer]DOCTORAL RESEARCH FELLOW Urine Color Yellow (Yellow) 02/19/23 03:50 Urine Appearance Clear (CLEAR) 02/19/23 03:50 Urine pH 5 (5-7) 02/19/23 03:50 Ur Specific Gary 1.010 (1.005-1.030) 02/19/23 03:50 Urine Protein Trace (Negative) 02/19/23 03:50 Urine Glucose (UA) 4+ (Normal) H 02/19/23 03:50 Urine Ketones 2+ (Negative) H 02/19/23 03:50 Urine Blood Neg (Negative) 02/19/23 03:50 Urine Nitrate Negative (Negative) 02/19/23 03:50 Urine Bilirubin Neg (Negative) 02/19/23 03:50 Urine Urobilinogen Neg mg/dL (Negative) 02/19/23 03:50 Ur Leukocyte Esterase Negative (Negative) 02/19/23 03:50 Urine RBC None /hpf (0-2) 02/19/23 03:50 Urine WBC None /hpf (0-5) 02/19/23 03:50 Ur Squamous Epith Cells None /hpf (0-5) 02/19/23 03:50 Amorphous Sediment Not Reportable 02/19/23 03:50 Urine Bacteria None /hpf (NONE) 02/19/23 03:50 Urine Opiates Screen Positive ng/mL (Negative) H 02/19/23 03:50 Ur Barbiturates Screen Negative ng/mL (Negative) 02/19/23 03:50 Ur Phencyclidine Scrn Negative ng/mL (Negative) 02/19/23 03:50 Ur Amphetamines Screen Negative ng/mL (Negative) 02/19/23 03:50 U Benzodiazepines Scrn Negative ng/mL (Negative) 02/19/23 03:50 Urine Cocaine Screen Negative ng/mL (Negative) 02/19/23 03:50 U Marijuana (THC) Screen Positive ng/mL (Negative) H 02/19/23 03:50 Serum Ketones Negative (Negative) 02/19/23 01:55 [employer]DOCTORAL RESEARCH FELLOW All radiology interpretation(s) finalized by discharge Discharge Plan Discharge Patient Disposition: Home Clinical Impression: Abdominal pain, Gastritis Condition: Stable Prescriptions: New Prevacid 30 mg capsule,delayed release(DR/EC) 30 mg PO DAILY Qty: 30 0RF ondansetron 4 mg film 4 mg PO DAILY PRN (Reason: nausea and vomiting) Qty: 15 0RF Continued hydrocodone-acetaminophen 7.5-325 mg tablet 1 tab PO Q8H PRN (Reason: pain (scale score 7-10)) Qty: 10 0RF No Action amlodipine 10 mg tablet 10 mg PO DAILY metformin 1,000 mg tablet 1,000 mg PO BID Jardiance 25 mg tablet 25 mg PO DAILY Qty: 90 3RF Rx Instructions: Take one tablet by mouth daily. losartan 100 mg tablet 100 mg PO DAILY 30 Days Qty: 30 5RF atorvastatin 40 mg tablet 40 mg PO DAILY pregabalin [Lyrica] 150 mg capsule 150 mg PO BID (DME) Dexcom G6 Special Tax Auditor Misc See Rx Instructions .Route Qty: 1 0RF Rx Instructions: Check BS 4 times a day. gabapentin 300 mg capsule 300 mg PO BID (DME) Dexcom G6 Transmitter Device See Rx Instructions .Route Qty: 3 3RF Rx Instructions: Change every 90 days. Ozempic 1 mg/dose (2 mg/1.5 mL) pen injector 1 mg SUBCUT .WEEKLY Qty: 3 3RF Rx Instructions: Administer 1 mg subcut weekly Victoza 3-Mario 0.6 mg/0.1 mL (18 mg/3 mL) pen injector 1.2 mg SUBCUT DAILY Qty: 18 3RF (DME) Dexcom G6 Sensor Device See Rx Instructions .Route Qty: 9 0RF Rx Instructions: Change every 10 days. celecoxib 200 mg capsule 200 mg PO BID Qty: 20 0RF Discharge Orders: Discharge ED (Routine); Ordered 02/19/23 Ordered By: Roque Grant Referrals: Betty Shansk, [facility] [Primary Care Provider] - Patient Instructions: Abdominal Pain (ED), Opioid Safety, Pain Management Activity Restrictions/Additional Instructions: Clear liquid diet for the next 36 hours at least. For the first 24 hours, take the medication prescribed for nausea every 4 hours while awake, then as needed following that. Return for vomiting liquids or medications, worsening pain despite treatment, other concerning symptoms. Follow-up with your doctor this week. Coding Level of Care Code ED Lead Former for Sonia Mullen
[2023-02-19 02:29] LABS: Alanine Aminotransferase 75 U/L (0-41); Albumin Level 4.9 g/dL (3.5-5.2); Alkaline Phosphatase 77 U/L (40-130); Anion Gap 19.1 (5-19); Aspartate Amino Transferase 34 U/L (0-40); Blood Urea Nitrogen 18 mg/dL (6-20); Calcium 9.9 mg/dL (8.5-10.5); Carbon Dioxide 26 mmol/L (22-29); Chloride 97 mmol/L (98-107); Creatinine Clr Calc Pharmacy 118.3795; Globulin 3.4 g/dL (1.3-4.6); Glomerular Filtration Rate 79.8 mL/min (90-130); Glucose 187 mg/dL (65-115); Lipase 19 U/L (13-60); Osmolality Calculated 293 mOsm/kg (285-295); Potassium 4.1 mmol/L (3.5-5.1); Sodium 138 mmol/L (136-145); Total Bilirubin 0.9 mg/dL (0.15-1.2); Total Protein 8.3 g/dL (6.6-8.7)
[2023-02-19] MEDS: iohexol 350 mg/mL 500 mL Btl (per mL) IV (02:30)
[2023-02-19] MEDS: sodium chloride 0.9% 1,000 ML 999 ML IV ×2 (02:31→03:08)
[2023-02-19] MEDS: ondansetron 2 mg/ML SDV 2 mL 4 MG IVP (02:31)
[2023-02-19] MEDS: HYDROmorphone 1 mg/mL INJ 1 mL IVP (02:31)
[2023-02-19 02:33] LABS: Lactic Sepsis W/Reflex 2.9 mmol/L (0.5-2.2)
[2023-02-19] MEDS: lidocaine 2% viscous 15 ML, aluminum-mag hydrox-simethicon 30 ML, sucralfate oral liq 1 GM PO (02:48)
[2023-02-19 03:58] LABS: Protein Urine Trace (Negative); Urine Appearance Clear (CLEAR); Urine Color Yellow (Yellow); pH Urine 5 (5-7)
[2023-02-19 03:59] LABS: Add Urine Microscopic? YES; Bilirubin Urine Neg (Negative); Blood Urine Neg (Negative); Glucose Urine UA 4+ (Normal); Ketones Urine 2+ (Negative); Leukocyte Esterase Urine Negative (Negative); Nitrate Urine Negative (Negative); Urobilinogen Urine Neg (Negative)
[2023-02-19 03:59] LABS: Reflex Lactate Order REFLEX LACTIC ORDERD
[2023-02-19 04:08] LABS: Amphetamines Screen Urine Negative (Negative); Barbiturates Screen Urine Negative (Negative); Benzodiazepines Screen Urine Negative (Negative); Cocaine Screen Urine Negative (Negative); Opiate Screen Urine Positive (Negative); PCP Screen Urine Negative (Negative); THC Screen Urine Positive (Negative)
[2023-02-19 05:33] VITALS: BP 127/87; PULSE 81; RESP 16; O2SAT 92
== END 2023-02-19 05:34 | disposition home or self-care (01) ==
PROVIDERS: Emergency Provider Emergency Medicine; PCP Nurse Practitioner
DX: K29.70 Gastritis, unspecified, without bleeding (principal); Z79.84 Long term (current) use of oral hypoglycemic drugs; E11.9 Type 2 diabetes mellitus without complications; E78.5 Hyperlipidemia, unspecified; I10 Essential (primary) hypertension
CPT/HCPCS: 74177; 80053; 80306; 81001; 82009; 83605; 83690; 85025; 86140; 96361; 96374; 96375; 99285; J1170; J2405; J7030; Q9967

== ENCOUNTER 2023-06-14 07:48 | Outpatient (CLI) | payer OTHER, SELFPAY ==
--- NOTE | 2023-06-14 07:58 | XR_ITS ---
WS: [id number] Exam: XR lumbar spine 2-3V* [id number] Date/Time of Exam: 06/14/2023 8:06 AM Reason For Exam: LUMBAR RADICULOPATHY/LUMBAR STENOSIS/S/P LUMBAR FUSION There is posterior fusion of the spine with pedicle screws and posterior rods extending from L4-S1. T he fusion is in satisfactory alignment. Disc spacers at L4-5 and L5-S1. Intact hardware. Associated L 4 and L5 laminectomies noted. The remainder of the lumbar spine appears normal. Aortoiliac atheroscle rosis. IMPRESSION: 1. Stable appearing fusion from L4-S1. No complications noted.
== END 2023-06-14 07:49 | disposition home or self-care (01) ==
LOC: RAD 07:49
PROVIDERS: PCP Nurse Practitioner; Visit Provider Nurse Practitioner Family
DX: Z98.1 Arthrodesis status (principal)
CPT/HCPCS: 72100

== ENCOUNTER → 2023-07-31 11:00 | Outpatient (BNVA) | payer OTHER, SELFPAY | PROVIDERS: PCP Nurse Practitioner; Visit Provider Internal Medicine | DX: E78.2 Mixed hyperlipidemia (principal); E11.65 Type 2 diabetes mellitus with hyperglycemia; Z79.84 Long term (current) use of oral hypoglycemic drugs; Z79.85 Long-term (current) use of injectable non-insulin antidiabetic drugs | CPT/HCPCS: 99214 ==

== ENCOUNTER 2023-08-11 20:59 | Emergency (ER) | payer OTHER, SELFPAY ==
[2023-08-11 21:00] VITALS: BP 162/105; PULSE 91; RESP 16; TEMP 36.3; O2SAT 97
[2023-08-11 22:09] VITALS: BP 164/99; PULSE 81; O2SAT 95
[2023-08-11 22:10] LABS: Basophils # 0.1 10^3/uL (0.0-0.1); Basophils % 0.5 %; Eosinophils # 0.5 10^3/uL (0.0-0.8); Eosinophils % 3.2 %; Hematocrit 47.5 % (37-53); Lymphocytes # 1.3 10^3/uL (0.8-4.8); Lymphocytes % 8.4 %; Mean Corpuscular HGB Conc 32.8 g/dL (30-55); Mean Corpuscular Hemoglobin 29.9 pg (27-33); Mean Corpuscular Volume 91.2 fl (82-101); Mean Platelet Volume 10.9 fL (7.4-10.4); Monocytes # 0.8 10^3/uL (0.2-0.9); Monocytes % 5.5 %; Neutrophils # 12.47 10^3/uL (1.8-7.7); Neutrophils % 82.1 %; Nucleated Red Blood Cells % 0 %; Platelet Count 239 10^3/cmm (157-399); Red Blood Count 5.21 10^6/uL (3.85-5.65); Red Cell Distribution Width 13.2 % (12.1-15.1); White Blood Count 15.17 10^3/uL (3.29-11.43)
[2023-08-11] MEDS: ondansetron 2 mg/ML SDV 2 mL 4 MG IVP (22:16)
[2023-08-11] MEDS: sodium chloride 0.9% 1,000 ML 999 ML IV (22:17)
[2023-08-11 22:27] LABS: Alanine Aminotransferase 27 U/L (0-41); Albumin Level 4.5 g/dL (3.5-5.2); Alkaline Phosphatase 106 U/L (40-130); Aspartate Amino Transferase 22 U/L (0-40); Blood Urea Nitrogen 12 mg/dL (6-20); Calcium 9.4 mg/dL (8.5-10.5); Carbon Dioxide 27 mmol/L (22-29); Chloride 100 mmol/L (98-107); Creatinine Clr Calc Pharmacy 122.2046; Globulin 3.7 g/dL (1.3-4.6); Glomerular Filtration Rate 89.7 mL/min (90-130); Glucose 158 mg/dL (65-115); Magnesium 1.6 mg/dL (1.7-2.3); Osmolality Calculated 293 mOsm/kg (285-295); Sodium 140 mmol/L (136-145); Total Bilirubin 0.7 mg/dL (0.15-1.2); Total Protein 8.2 g/dL (6.6-8.7)
[2023-08-11 22:29] LABS: Anion Gap 17.1 (5-19); Potassium 4.1 mmol/L (3.5-5.1)
[2023-08-11 22:35] LABS: Lipase 618 U/L (13-60)
--- NOTE | 2023-08-11 22:43 | CTR_ITS ---
PROCEDURE INFORMATION: Exam: CT Abdomen And Pelvis With Contrast Exam date and time: 08/11/2023 11:28 PM Age: 48 years old Clinical indication: Pain and abnormal findings; Abnormal lab test; Elevated lipase; Nausea and vomiting; Abdominal pain; Generalized; Prior surgery; Surgery date: 6+ months; Surgery type: Lumbar fusion; Patient HX: Abd pain with n/v. Lipase 618. ; Additional info: Elevated lipase/abd pain TECHNIQUE: Imaging protocol: Computed tomography of the abdomen and pelvis with contrast. Radiation optimization: All CT scans at this facility use at least one of these dose optimization techniques: automated exposure control; mA and/or kV adjustment per patient size (includes targeted exams where dose is matched to clinical indication); or iterative reconstruction. Contrast material: OMNI 350; Contrast volume: 100 ml; Contrast route: INTRAVENOUS (IV); COMPARISON: CT abdomen pelvis w con* [id number] 02/19/2023 3:28 AM RADIATION DOSE METRICS: Total DLP (mGy-cm): 1326.03 FINDINGS: Lungs: The lung bases are clear. Heart: Heart size is within normal limits. There is no pericardial effusion or pericardial thickening. Liver: The liver is normal. No hepatic masses are identified. Gallbladder and bile ducts: The gallbladder is normal. There is no ductal dilatation. Pancreas: The pancreas is normal. Spleen: The spleen is normal. Adrenal glands: The adrenal glands are normal. Kidneys and ureters: There is normal enhancement of the kidneys. No renal calcifications are identified. There is no hydronephrosis. Stomach and bowel: Mild colonic diverticulosis without diverticulitis. There is no large or small bowel obstruction. There is no evidence of bowel wall thickening. Appendix: A normal appendix is identified. Intraperitoneal space: No inflammatory changes are identified. There is no free fluid or fluid collection seen. There is no pneumoperitoneum. Vasculature: Atherosclerotic calcifications of the aorta are present. No aneurysm is identified. Lymph nodes: There are no enlarged retroperitoneal or mesenteric lymph nodes. Urinary bladder: The bladder is unremarkable. Reproductive: There is mild prostatomegaly. Bones/joints: No acute osseous abnormalities are seen. Status post posterior laminectomy and fusion from L4-S1. Soft tissues: Small periumbilical hernia containing only fat. The soft tissues are otherwise within normal limits. CT/CT abdomen pelvis w con* [id number] IMPRESSION: 1. No acute intra-abdominal or pelvic process. 2. Other nonemergent findings above.
[2023-08-11 22:46] LABS: Procalcitonin 0.08 ng/mL (0-0.5)
[2023-08-11 23:18] VITALS: RESP 16
[2023-08-11] MEDS: morphine 4 mg/mL SDV 1 mL IVP (23:18)
[2023-08-11] MEDS: iohexol 350 mg/mL 500 mL Btl (per mL) IV (23:28)
[2023-08-12 00:07] VITALS: BP 156/93; PULSE 90; O2SAT 96
[2023-08-12 00:09] LABS: Add Urine Microscopic? NO; Charge for UA Resulting for Rev
[2023-08-12 00:18] LABS: Bilirubin Urine Neg (Negative); Blood Urine Neg (Negative); Glucose Urine UA 4+ (Normal); Ketones Urine 1+ (Negative); Leukocyte Esterase Urine Negative (Negative); Nitrate Urine Negative (Negative); Protein Urine Neg (Negative); Specific Gravity, Urine 1.015 (1.005-1.030); Urine Appearance Clear (CLEAR); Urine Color Colorless (Yellow); Urobilinogen Urine Neg (Negative); pH Urine 5 (5-7)
[2023-08-12 00:27] VITALS: RESP 18
[2023-08-12] MEDS: ondansetron 2 mg/ML SDV 2 mL 4 MG IVP (00:27)
[2023-08-12] MEDS: morphine 4 mg/mL SDV 1 mL IVP (00:27)
--- NOTE | 2023-08-12 00:58 | ED_ITS ---
Documented by User: REID Jacobs 08/12/23 13:10 HPI - Nausea/Vomiting/Diarrhea 2 General: Chief complaint: Nausea/Vomiting/Diarrhea Stated complaint: vomitting Time Seen by Provider: 08/11/23 22:09 Source: patient Mode of arrival: ambulatory Limitations: no limitations History of Present Illness: Patient is a 48-year-old male presenting to the emergency department planing of nausea and vomiting associated with diffuse abdominal pain beginning today. He notes that a recent resident had similar symptoms, and he is concerned that he caught what ever they had. He notes too many episodes to count of vomiting, and states he has been unable to keep down food or drink. He is also noting some chills, but denies any fevers, respiratory complaints, chest pain, or any other symptoms at this time. He denies history of alcohol abuse. He notes he still has his appendix and gallbladder. No urinary symptoms or changes in bowel at this time, though he notes his stools have been more loose than normal today. Has not taken anything for his symptoms to this point. He does note recently having a back surgery. He does not specify this. MD elicited complaint: nausea, vomiting and abdominal pain Onset (ago): hour(s) Associated nausea: Yes Associated abdominal pain: Yes Location of pain: Diffuse Severity: moderate Quality: cramping Associated symtoms: Reports nausea; Denies chest pain, diaphoresis, dizziness, dysuria, headache(s) or palpitations Review of Systems 2 General: Reports: 10 or more systems reviewed and unremarkable except in HPI and below Const: Reports: chills; Denies: fever(s), change in appetite, change in weight or diaphoresis ENMT: Denies: throat pain or hoarseness Card: Denies: chest pain, palpitations or lightheadedness Resp: Denies: dyspnea, productive cough or wheezing GI: Reports: abdominal pain, nausea and vomiting; Denies: hematemesis, coffee ground emesis or constipation : Denies: flank pain, difficulty urinating, dysuria, urinary frequency or urinary urgency Musc: Denies: neck pain or back pain Skin/Breast: Denies: rash or new lesions Neuro: Denies: headache(s) or dizziness PFSH ED 2 PFSH: Medical History Abnormal skin color Obesity (BMI 30-39.9) Abnormal EKG An EKG was done in the office. It revealed normal sinus rhythm with a nonspecific T wave changes in the anterolateral leads. Elevated C-reactive protein (CRP) Diabetes Hyperlipidemia Sleep apnea Could not use CPAP Allergic rhinitis Hypertension Gout Surgical History S/P tonsillectomy Previous back surgery History of adenectomy Family History Father No problems noted. Family/Other Diabetes Suicide Other Cancer Cirrhosis Denies family history of CAD (coronary artery disease) Clotting disorder Dementia Anesthesia complication Bleeding disorder Lung disease Stroke Social History Smoking and tobacco/nicotine status: never used tobacco/nicotine Alcohol intake: current Alcohol intake frequency: holidays/special occasions only Substance/Drug Use: current Substance/Drug use frequency: Special occassions/opportunity only Physical Exam 2 Const: COMMON NORMALS: average body habitus, patient oriented x3, no limitations, healthy appearing, alert and well nourished GENERAL APPEARANCE: cooperative and in distress (from pain) ORIENTATION/CONSCIOUSNESS: Yes awake HENMT: COMMON NORMALS: normocephalic, atraumatic, hearing grossly normal bilaterally, external ears normal, Normal external nose present, Normal nasal mucous membranes and turbinates present and moist oral mucous membranes HEAD & SCALP: normocephalic and atraumatic NOSE: Normal external nose present and Normal nasal mucous membranes and turbinates present EXTERNAL EAR: Yes external ears normal Eye: COMMON NORMALS: Equal, round and reactive pupils present, EOMs intact bilaterally, conjunctivae normal and normal visual mcmahon by confrontation C ONJUNCTIVA: Yes conjunctivae normal PUPIL: Yes Equal, round and reactive pupils present Neck/C-Spine: COMMON NORMALS: full ROM, supple, no meningeal signs and no JVD Resp: COMMON NORMALS: normal respiratory effort, No retractions, No use of accessory muscles and clear to auscultation bilaterally AUSCULTATION: clear to auscultation bilaterally, no crackles, no rales, no rhonchi and no wheezes Cardio: COMMON NORMALS: no JVD, regular rate, regular rhythm, S1 normal heart sound present, S2 normal heart sound present, No gallops present (Cardio), No clicks present (Cardio), No murmurs present (Cardio), No rub (Cardio) and Peripheral pulses 2+ throughout RATE: regular rate RHYTHM: regular rhythm HEART SOUNDS: S1 normal heart sound present and S2 normal heart sound present PERIPHERAL PULSES: Peripheral pulses 2+ throughout GI: COMMON NORMALS: Normal to inspection, nondistended, normoactive bowel sounds present, Soft to palpation, No hepatosplenomegaly present and no masses INSPECTION: Yes central obesity AUSCULTATION: Yes normoactive bowel sounds PALPATION: Yes Soft to palpation, Yes Tenderness to palpation present (GI) (Diffuse, mild), No Guarding due to palpation present (GI), No Rigid due to palpation and Yes No hepatosplenomegaly present RECTAL EXAM: Yes deferred OTHER: Actively dry heaving on exam : COMMON NORMALS: Yes no CVA tenderness BLADDER/KIDNEY EXAM: Yes no CVA tenderness Back/Pelvis: COMMON NORMALS: no CVA tenderness Extremity: COMMON NORMALS: normal to inspection and full ROM Neuro: COMMON NORMALS: patient oriented x3, moves all extremities, no focal motor deficits and no sensory deficits noted SENSORIUM/ORIENTATION: Yes alert MENINGEAL SIGNS: Yes no meningeal signs Psych: COMMON NORMALS: mental status grossly normal, cooperative and speech normal SPEECH: Yes normal speech Skin: COMMON NORMALS: no rashes or lesions noted GENERAL SKIN EXAM: no rashes or lesions noted Course 2 Vital Signs: Vital signs: Vital Signs Temperature 97.3 F L 08/11/23 21:00 Pulse Rate 90 08/12/23 00:07 Respiratory Rate 18 08/12/23 00:27 Blood Pressure 138/86 08/12/23 01:25 Pulse Oximetry 99 08/12/23 01:25 Oxygen Delivery Me thod Room Air 08/12/23 00:07 MDM - Nausea/Vomiting/Diarrhea Medical Decision Making Patient seen and evaluated for nausea and vomiting associated with some diffuse abdominal pain beginning today. Upon recheck sometime later he does note that he had a similar episode of this immediately following his back surgery last fall. After giving patient 2 doses of IV Zofran as well as 2 doses of IV morphine, he notes that he feels better. He does state that he remembers being given a GI cocktail in his last visit where his symptoms were similar, and notes that this improved his pain greatly. Patient is given a GI cocktail. His lab evaluation overall unremarkable, though his lipase was elevated at 618. He did have mild elevations in white count, likely due to a viral gastroenteritis. His abdomen CT negative for any signs of acute abdomen or pelvic etiology, with specifically his pancreas appearing normal as well as his gallbladder and associated ducts. Patient also given a liter of fluids for rehydration. Prior to discharge he does note he feels better, I will send him home with prescription for Zofran for his nausea. He is encouraged to follow-up with his primary doctor next week for reevaluation and to discuss the elevated lipase. He agrees with this and will return to the emergency department if his condition worsens or he has any new or concerning symptoms. Lab Data I reviewed the patient's lab results. 08/11/23 22:02 08/11/23 22:02 Radiology Impressions Abdomen/Pelvis CT 08/11/23 22:43 IMPRESSION: 1. No acute intra-abdominal or pelvic process. 2. Other nonemergent findings above. Laboratory Results WBC 15.17 10^3/uL (3.29-11.43) H 08/11/23 22: RBC 5.21 10^6/uL (3.85-5.65) 08/11/23 22: Hgb 15.60 g/dL (11.27-16.99) 08/11/23 22: Hct 47.5 % (37-53) 08/11/23 22: MCV 91.2 fl (82-101) 08/11/23 22: MCH 29.9 pg (27-33) 08/11/23 22: MCHC 32.8 g/dL (30-55) 08/11/23 22: RDW 13.2 % (12.1-15.1) 08/11/23 22: Plt Count 239 10^3/cmm (157-399) 08/11/23 22: MPV 10.9 fL (7.4-10.4) H 08/11/23 22: Neut % (Auto) 82.1 % 08/11/23 22: Lymph % (Auto) 8.4 % 08/11/23: [place] % (Auto) 5.5 % 08/11/23 22: Eos % (Auto) 3.2 % 08/11/23 22:02 Baso % (Auto) 0.5 % 08/11/23 22:02 Neut # (Auto) 12.47 10^3/uL (1.8-7.7) H 08/11/23 22:02 Lymph # (Auto) 1.3 10^3/uL (0.8-4.8) 08/11/23 22:02 [place] # (Auto) 0.8 10^3/uL (0.2-0.9) 08/11/23 22:02 Eos # (Auto) 0.5 10^3/uL (0.0-0.8) 08/11/23 22:02 Baso # (Auto) 0.1 10^3/uL (0.0-0.1) 08/11/23 22:02 Nucleated RBC % (auto) 0 % 08/11/23 22:02 Nucleated RBCs # 0.0 /100WBC 08/11/23 22:02 Sodium 140 mmol/L (136-145) 08/11/23 22:02 Potassium 4.1 mmol/L (3.5-5.1) 08/11/23 22:02 Chloride 100 mmol/L (98-107) 08/11/23 22:02 Carbon Dioxide 27 mmol/L (22-29) 08/11/23 22:02 Anion Gap 17.1 (5-19) 08/11/23 22:02 BUN 12 mg/dL (6-20) 08/11/23 22:02 Creatinine 0.9 mg/dL (0.7-1.2) 08/11/23 22:02 GFR Calculation 89.7 mL/min (90-130) L 08/11/23 22:02 Glucose 158 mg/dL (65-115) H 08/11/23 22:02 Calculated Osmolality 293 mOsm/kg (285-295) 08/11/23 22:02 Calcium 9.4 mg/dL (8.5-10.5) 08/11/23 22:02 Magnesium 1.6 mg/dL (1.7-2.3) L 08/11/23 22:02 Total Bilirubin 0.7 mg/dL (0.15-1.2) 08/11/23 22:02 AST 22 U/L (0-40) 08/11/23 22:02 ALT 27 U/L (0-41) 08/11/23 22:02 Alkaline Phosphatase 106 U/L (40-130) 08/11/23 22:02 C-Reactive Protein 3.0 mg/L (0.0-4.9) 08/11/23 22:02 Total Protein 8.2 g/dL (6.6-8.7) 08/11/23 22:02 Albumin 4.5 g/dL (3.5-5.2) 08/11/23 22:02 Globulin 3.7 g/dL (1.3-4.6) 08/11/23 22:02 Lipase 618 U/L (13-60) H 08/11/23 22:02 Procalcitonin 0.08 ng/mL (0-0.5) 08/11/23 22:02 Urine Color Colorless (Yellow) 08/12/23 00:00 Urine Appearance Clear (CLEAR) 08/12/23 00:00 Urine pH 5 (5-7) 08/12/23 00:00 Ur Specific [place] 1.015 (1.005-1.030) 08/12/23 00:00 Urine Protein Neg (Negative) 08/12/23 00:00 Urine Glucose (UA) 4+ (Normal) H 08/12/23 00:00 Urine Ketones 1+ (Negative) H 08/12/23 00:00 Urine Blood Neg (Negative) 08/12/23 00:00 Urine Nitrate Negative (Negative) 08/12/23 00:00 Urine Bilirubin Neg (Negative) 08/12/23 00:00 Urine Urobilinogen Neg mg/dL (Negative) 08/12/23 00:00 Ur Leukocyte Esterase Negative (Negative) 08/12/23 00:00 All radiology interpretation(s) finalized by discharge Discharge Plan Discharge Patient Disposition: Home Clinical Impression: Gastroenteritis Condition: Stable Prescriptions: New ondansetron HCl 4 mg tablet 4 mg PO Q8H Qty: 30 0RF No Action amlodipine 10 mg tablet 10 mg PO DAILY metformin 1,000 mg tablet 1,000 mg PO BID Jardiance 25 mg tablet 25 mg PO DAILY Qty: 90 3RF Rx Instructions: Take one tablet by mouth daily. 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 gabapentin 300 mg capsule 300 mg PO BID (DME) Dexcom G6 Transmitter Device See Rx Instructions .Route Qty: 3 3RF Rx Instructions: Change every 90 days. Ozempic 1 mg/dose (2 mg/1.5 mL) pen injector 1 mg SUBCUT .WEEKLY Qty: 3 3RF Rx Instructions: Administer 1 mg subcut weekly Victoza 3-Mario 0.6 mg/0.1 mL (18 mg/3 mL) pen injector 1.2 mg SUBCUT DAILY Qty: 18 3RF (DME) Dexcom G6 Sensor Device See Rx Instructions .Route Qty: 9 0RF Rx Instructions: Change every 10 days. celecoxib 200 mg capsule 200 mg PO BID Qty: 20 0RF Prevacid 30 mg capsule,delayed release(DR/EC) 30 mg PO DAILY Qty: 30 0RF ondansetron 4 mg film 4 mg PO DAILY PRN (Reason: nausea and vomiting) Qty: 15 0RF hydrocodone-acetaminophen 7.5-325 mg tablet 1 tab PO Q8H PRN (Reason: pain (scale score 7-10)) Qty: 10 0RF Discharge Orders: Discharge ED (Routine); Ordered 08/12/23 Ordered By: Dario Warren Referrals: Betty Shanks FNP [Primary Care Provider] - Discharge Diet: Clear Liquid Discharge Activity: Increase activity as tolerated Patient Instructions: Gastroenteritis (ED) Activity Restrictions/Additional Instructions: Clear liquid diet. Zofran as needed for nausea. Follow-up with primary care provider as instructed to discuss ED visit. Return if you develop any new or concerning symptoms. Coding Level of Care Code ED Farmworker for Chg Fwd Documented by User: Alex Palma DO 08/16/23 09:03 HPI - Nausea/Vomiting/Diarrhea 2 General: Chief complaint: Nausea/Vomiting/Diarrhea Stated complaint: vomitting Time Seen by Provider: 08/11/23 22:09 [facility] ED 2 PFS: Medical History Abnormal skin color Obesity (BMI 30-39.9) Abnormal EKG An EKG was done in the office. It revealed normal sinus rhythm with a nonspecific T wave changes in the anterolateral leads. Elevated C-reactive protein (CRP) Diabetes Hyperlipidemia Sleep apnea Could not use CPAP Allergic rhinitis Hypertension Gout Surgical History S/P tonsillectomy Previous back surgery History of adenectomy Family History Father No problems noted. Family/Other Diabetes Suicide Other Cancer Cirrhosis Denies family history of CAD (coronary artery disease) Clotting disorder Dementia Anesthesia complication Bleeding disorder Lung disease Stroke Social History Smoking and tobacco/nicotine status: never used tobacco/nicotine Alcohol intake: current Alcohol intake frequency: holidays/special occasions only Substance/Drug Use: current Substance/Drug use frequency: Special occassions/opportunity only Course 2 Vital Signs: Vital signs: Vital Signs Temperature 97.3 F L 08/11/23 21:00 Pulse Rate 90 08/12/23 00:07 Respiratory Rate 18 08/12/23 00:27 Blood Pressure 138/86 08/12/23 01:25 Pulse Oximetry 99 08/12/23 01:25 Oxygen Delivery Me thod Room Air 08/12/23 00:07 MDM - Nausea/Vomiting/Diarrhea Medical Decision Making Patient seen and evaluated for nausea and vomiting associated with some diffuse abdominal pain beginning today. Upon recheck sometime later he does note that he had a similar episode of this immediately following his back surgery last fall. After giving patient 2 doses of IV Zofran as well as 2 doses of IV morphine, he notes that he feels better. He does state that he remembers being given a GI cocktail in his last visit where his symptoms were similar, and notes that this improved his pain greatly. Patient is given a GI cocktail. His lab evaluation overall unremarkable, though his lipase was elevated at 618. He did have mild elevations in white count, likely due to a viral gastroenteritis. His abdomen CT negative for any signs of acute abdomen or pelvic etiology, with specifically his pancreas appearing normal as well as his gallbladder and associated ducts. Patient also given a liter of fluids for rehydration. Prior to discharge he does note he feels better, I will send him home with prescription for Zofran for his nausea. He is encouraged to follow-up with his primary doctor next week for reevaluation and to discuss the elevated lipase. He agrees with this and will return to the emergency department if his condition worsens or he has any new or concerning symptoms. Chart reviewed Lab Data 08/11/23 22:02 08/11/23 22:02 Radiology Impressions Abdomen/Pelvis CT 08/11/23 22:43 IMPRESSION: 1. No acute intra-abdominal or pelvic process. 2. Other nonemergent findings above. Laboratory Results WBC 15.17 10^3/uL (3.29-11.43) H 08/11/23 22: RBC 5.21 10^6/uL (3.85-5.65) 08/11/23 22: Hgb 15.60 g/dL (11.27-16.99) 08/11/23 22: Hct 47.5 % (37-53) 08/11/23 22: MCV 91.2 fl (82-101) 08/11/23 22: MCH 29.9 pg (27-33) 08/11/23 22: MCHC 32.8 g/dL (30-55) 08/11/23 22: RDW 13.2 % (12.1-15.1) 08/11/23 22: Plt Count 239 10^3/cmm (157-399) 08/11/23 22: MPV 10.9 fL (7.4-10.4) H 08/11/23 22: Neut % (Auto) 82.1 % 08/11/23 22: Lymph % (Auto) 8.4 % 08/11/23 22: [place] % (Auto) 5.5 % 08/11/23 22: Eos % (Auto) 3.2 % 08/11/23 22: Baso % (Auto) 0.5 % 04/26/24 22:02 Neut # (Auto) 12.47 10^3/uL (1.8-7.7) H 08/11/23 22:02 Lymph # (Auto) 1.3 10^3/uL (0.8-4.8) 08/11/23 22:02 [place] # (Auto) 0.8 10^3/uL (0.2-0.9) 08/11/23 22:02 Eos # (Auto) 0.5 10^3/uL (0.0-0.8) 08/11/23 22:02 Baso # (Auto) 0.1 10^3/uL (0.0-0.1) 08/11/23 22:02 Nucleated RBC % (auto) 0 % 08/11/23 22:02 Nucleated RBCs # 0.0 /100WBC 08/11/23 22:02 Sodium 140 mmol/L (136-145) 08/11/23 22:02 Potassium 4.1 mmol/L (3.5-5.1) 08/11/23 22:02 Chloride 100 mmol/L (98-107) 08/11/23 22:02 Carbon Dioxide 27 mmol/L (22-29) 08/11/23 22:02 Anion Gap 17.1 (5-19) 08/11/23 22:02 BUN 12 mg/dL (6-20) 08/11/23 22:02 Creatinine 0.9 mg/dL (0.7-1.2) 08/11/23 22:02 GFR Calculation 89.7 mL/min (90-130) L 08/11/23 22:02 Glucose 158 mg/dL (65-115) H 08/11/23 22:02 Calculated Osmolality 293 mOsm/kg (285-295) 08/11/23 22:02 Calcium 9.4 mg/dL (8.5-10.5) 08/11/23 22:02 Magnesium 1.6 mg/dL (1.7-2.3) L 08/11/23 22:02 Total Bilirubin 0.7 mg/dL (0.15-1.2) 08/11/23 22:02 AST 22 U/L (0-40) 08/11/23 22:02 ALT 27 U/L (0-41) 08/11/23 22:02 Alkaline Phosphatase 106 U/L (40-130) 08/11/23 22:02 C-Reactive Protein 3.0 mg/L (0.0-4.9) 08/11/23 22:02 Total Protein 8.2 g/dL (6.6-8.7) 08/11/23 22:02 Albumin 4.5 g/dL (3.5-5.2) 08/11/23 22:02 Globulin 3.7 g/dL (1.3-4.6) 08/11/23 22:02 Lipase 618 U/L (13-60) H 08/11/23 22:02 Procalcitonin 0.08 ng/mL (0-0.5) 08/11/23 22:02 Urine Color Colorless (Yellow) 08/12/23 00:00 Urine Appearance Clear (CLEAR) 08/12/23 00:00 Urine pH 5 (5-7) 08/12/23 00:00 Ur Specific [place] 1.015 (1.005-1.030) 08/12/23 00:00 Urine Protein Neg (Negative) 08/12/23 00:00 Urine Glucose (UA) 4+ (Normal) H 08/12/23 00:00 Urine Ketones 1+ (Negative) H 08/12/23 00:00 Urine Blood Neg (Negative) 08/12/23 00:00 Urine Nitrate Negative (Negative) 08/12/23 00:00 Urine Bilirubin Neg (Negative) 08/12/23 00:00 Urine Urobilinogen Neg mg/dL (Negative) 08/12/23 00:00 Ur Leukocyte Esterase Negative (Negative) 08/12/23 00:00 Discharge Plan Discharge Patient Disposition: Home Clinical Impression: Gastroenteritis Condition: Stable Prescriptions: New ondansetron HCl 4 mg tablet 4 mg PO Q8H Qty: 30 0RF No Action amlodipine 10 mg tablet 10 mg PO DAILY metformin 1,000 mg tablet 1,000 mg PO BID Jardiance 25 mg tablet 25 mg PO DAILY Qty: 90 3RF Rx Instructions: Take one tablet by mouth daily. 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 gabapentin 300 mg capsule 300 mg PO BID (DME) Dexcom G6 Transmitter Device See Rx Instructions .Route Qty: 3 3RF Rx Instructions: Change every 90 days. Ozempic 1 mg/dose (2 mg/1.5 mL) pen injector 1 mg SUBCUT .WEEKLY Qty: 3 3RF Rx Instructions: Administer 1 mg subcut weekly Victoza 3-Mario 0.6 mg/0.1 mL (18 mg/3 mL) pen injector 1.2 mg SUBCUT DAILY Qty: 18 3RF (DME) Dexcom G6 Sensor Device See Rx Instructions .Route Qty: 9 0RF Rx Instructions: Change every 10 days. celecoxib 200 mg capsule 200 mg PO BID Qty: 20 0RF Prevacid 30 mg capsule,delayed release(DR/EC) 30 mg PO DAILY Qty: 30 0RF ondansetron 4 mg film 4 mg PO DAILY PRN (Reason: nausea and vomiting) Qty: 15 0RF hydrocodone-acetaminophen 7.5-325 mg tablet 1 tab PO Q8H PRN (Reason: pain (scale score 7-10)) Qty: 10 0RF Discharge Orders: Discharge ED (Routine); Ordered 08/12/23 Ordered By: Dario Warren Referrals: Betty Shanks FNP [Primary Care Provider] - Discharge Diet: Clear Liquid Discharge Activity: Increase activity as tolerated Patient Instructions: Gastroenteritis (ED) Activity Restrictions/Additional Instructions: Clear liquid diet. Zofran as needed for nausea. Follow-up with primary care provider as instructed to discuss ED visit. Return if you develop any new or concerning symptoms. Coding Level of Care Code ED Farmworker for Sonia Mullen
[2023-08-12] MEDS: lidocaine 2% viscous 15 ML, aluminum-mag hydrox-simethicon 30 ML, sucralfate oral liq 1 GM PO (01:19)
[2023-08-12 01:25] VITALS: BP 138/86; O2SAT 99
== END 2023-08-12 02:01 | disposition home or self-care (01) ==
PROVIDERS: Emergency Medicine; Emergency Provider Physician Assistant; PCP Nurse Practitioner
DX: K52.9 Noninfective gastroenteritis and colitis, unspecified (principal); Z79.84 Long term (current) use of oral hypoglycemic drugs; Z79.85 Long-term (current) use of injectable non-insulin antidiabetic drugs; E11.9 Type 2 diabetes mellitus without complications; E78.5 Hyperlipidemia, unspecified; I10 Essential (primary) hypertension
CPT/HCPCS: 74177; 80053; 81003; 83690; 83735; 84145; 85025; 86140; 96361; 96374; 96375; 96376; 99285; J2270; J2405; J7030; Q9967

== ENCOUNTER 2023-11-24 09:53 | Outpatient (CLI) | payer OTHER, SELFPAY ==
--- NOTE | 2023-11-24 09:58 | CTR_ITS ---
PROCEDURE INFORMATION: Exam: CT Lumbar Spine Without Contrast Exam date and time: 11/24/2023 10:02 AM Age: 48 years old Clinical indication: Prior surgery; Surgery date: 6+ months; Patient HX: Low back pain continued following a lumbar fusion surgery 03/2023, right leg numbness, left ankle drop; Additional info: Follow up lumbar surgery/radiculopathy TECHNIQUE: Imaging protocol: Computed tomography of the lumbar spine without contrast. Radiation optimization: All CT scans at this facility use at least one of these dose optimization techniques: automated exposure control; mA and/or kV adjustment per patient size (includes targeted exams where dose is matched to clinical indication); or iterative reconstruction. COMPARISON: MR lumbar spine wo con* [id number] 02/03/2023 9:00 AM RADIATION DOSE METRICS: Total DLP (mGy-cm): 695.34 FINDINGS: Bones/joints: L4 through S1 fusion with laminectomies. On the right side there is solid posterolateral bridging bone. On the left side there is no definite posterolateral bridging bone. Interbody fusions appear solid. Alignment is normal. No acute fracture. Moderate neural foraminal narrowing bilaterally at L5-S1 related to osteophyte and facet hypertrophy, similar to what was seen on MRI from 02/03/2023. Soft tissues: Unremarkable. CT/CT lumbar spine wo con* [id number] IMPRESSION: 1. L4 through S1 fusion with laminectomies. On the right side there is solid posterolateral bridging bone. On the left side there is no definite posterolateral bridging bone. Interbody fusions appear solid. 2. Moderate neural foraminal narrowing bilaterally at L5-S1 related to osteophyte and facet hypertrophy, similar to what was seen on MRI from 02/03/2023.
== END 2023-11-24 09:54 | disposition home or self-care (01) ==
LOC: RAD 09:55
PROVIDERS: PCP Nurse Practitioner; Visit Provider Nurse Practitioner
DX: M99.63 Osseous and subluxation stenosis of intervertebral foramina of lumbar region (principal); M99.64 Osseous and subluxation stenosis of intervertebral foramina of sacral region; M25.78 Osteophyte, vertebrae; M47.896 Other spondylosis, lumbar region
CPT/HCPCS: 72131

== ENCOUNTER → 2024-01-31 11:37 | Outpatient (BNVA) | payer OTHER, SELFPAY | PROVIDERS: PCP Nurse Practitioner; Visit Provider Internal Medicine | DX: I50.9 Heart failure, unspecified (principal); E11.65 Type 2 diabetes mellitus with hyperglycemia; E78.2 Mixed hyperlipidemia; Z79.84 Long term (current) use of oral hypoglycemic drugs; Z79.85 Long-term (current) use of injectable non-insulin antidiabetic drugs | CPT/HCPCS: 36415; 80053; 80061; 83036; 99214 ==

== ENCOUNTER 2024-02-01 07:54 | Outpatient (CLI) | payer OTHER, SELFPAY ==
[2024-02-01 08:40] LABS: Creatinine Urine, Random 124 mg/dL (39-259); Microalbum Creatinine Ratio Ur 8 mg/dL (0-20); Microalbumin Random Urine 1 ug/dL (0-20)
== END 2024-02-01 07:55 | disposition home or self-care (01) ==
PROVIDERS: Internal Medicine; PCP Nurse Practitioner; Visit Provider Emergency Medicine Pediatric Emergency Medicine
DX: E11.65 Type 2 diabetes mellitus with hyperglycemia (principal); E78.2 Mixed hyperlipidemia
CPT/HCPCS: 82044

== ENCOUNTER 2024-04-22 10:27 | Outpatient (CLI) | payer OTHER, SELFPAY ==
--- NOTE | 2024-04-22 10:34 | XRR_ITS ---
PROCEDURE INFORMATION: Exam: XR Lumbosacral Spine Exam date and time: 04/22/2024 10:44 AM Age: 48 years old Clinical indication: Low back pain; Prior surgery; Surgery date: 6+ months; Surgery type: Multiple lumbar fusions; Additional info: Degenerative disc disease TECHNIQUE: Imaging protocol: Radiologic exam of the lumbosacral spine. Views: 2 or 3 views. COMPARISON: CT lumbar spine wo con* [id number] 11/24/2023 10:02 AM FINDINGS: Bones/joints: The pedicles are intact. Anterior and posterior fusion L4 through S1. No fracture. No lytic or sclerotic bone lesion. The soft tissues are normal. Soft tissues: Unremarkable. XR/XR lumbar spine 2-3V* [id number] IMPRESSION: Postoperative findings.
== END 2024-04-22 10:28 | disposition home or self-care (01) ==
LOC: LAB 10:30 → RAD 10:33
PROVIDERS: PCP Nurse Practitioner; Visit Provider Nurse Practitioner Family
DX: M51.35 Other intervertebral disc degeneration, thoracolumbar region (principal); Z98.1 Arthrodesis status
CPT/HCPCS: 72100

== ENCOUNTER 2024-07-11 08:05 | Outpatient (CLI) | payer OTHER, SELFPAY ==
[2024-07-11 08:57] LABS: Estmated Average Glucose 131; Hemoglobin A1C 6.2 % (4.0-6.0)
[2024-07-11 09:10] LABS: Alanine Aminotransferase 29 U/L (0-41); Albumin Level 4.5 g/dL (3.5-5.2); Alkaline Phosphatase 86 U/L (40-130); Aspartate Amino Transferase 17 U/L (0-40); Blood Urea Nitrogen 12 mg/dL (6-20); Calcium 10.1 mg/dL (8.5-10.5); Carbon Dioxide 28 mmol/L (22-29); Chloride 102 mmol/L (98-107); Chol HDL Ratio 3.21 mg/dL (1.0-5.00); Cholesterol 151 mg/dL (0-200); Glomerular Filtration Rate 102.3 mL/min (90-130); Glucose 136 mg/dL (65-115); HDL Cholesterol 47 mg/dL (60-100); LDL Cholesterol Calculated 53 mg/dL (50-129); LDL HDL Ratio 1.13 RATIO (0.00-3.22); Osmolality Calculated 296 mOsm/kg (285-295); Sodium 142 mmol/L (136-145); Total Bilirubin 0.3 mg/dL (0.15-1.2); Total Protein 7.5 g/dL (6.6-8.7); Triglycerides 256 mg/dL (0-150)
[2024-07-11 09:13] LABS: Creatinine Urine, Random 114 mg/dL (39-259); Microalbum Creatinine Ratio Ur 9 mg/dL (0-20); Microalbumin Random Urine 1 ug/dL (0-20)
== END 2024-07-11 08:06 | disposition home or self-care (01) ==
LOC: LAB 08:06
PROVIDERS: PCP Nurse Practitioner; Visit Provider Internal Medicine
DX: E11.65 Type 2 diabetes mellitus with hyperglycemia (principal); E78.2 Mixed hyperlipidemia
CPT/HCPCS: 36415; 80053; 80061; 82044; 83036

== ENCOUNTER → 2024-07-23 11:28 | Outpatient (BNVA) | payer OTHER, SELFPAY | PROVIDERS: PCP Nurse Practitioner; Visit Provider Internal Medicine | DX: E11.65 Type 2 diabetes mellitus with hyperglycemia (principal); E78.2 Mixed hyperlipidemia | CPT/HCPCS: 99214 ==

== ENCOUNTER 2024-08-06 09:55 | Outpatient (CLI) | payer OTHER, SELFPAY ==
--- NOTE | 2024-08-06 10:03 | XR_ITS ---
WS: [id number] Exam: XR lumbar spine 2-3V* [id number] Date/Time of Exam: 08/06/2024 10:08 AM Reason For Exam: ARTHRODESIS STATUS Comparison 04/22/2024. Posterior fusion of the spine extends from L4-S1. Intervening disc spacers are in place. The fusion remains in good alignment. No sign of hardware complication. XR/XR lumbar spine 2-3V* [id number] IMPRESSION: 1. Stable posterior fusion extending from L4-S1.
== END 2024-08-06 09:56 | disposition home or self-care (01) ==
LOC: RAD 10:02
PROVIDERS: PCP Nurse Practitioner; Visit Provider Nurse Practitioner Family
DX: Z98.1 Arthrodesis status (principal)
CPT/HCPCS: 72100

== ENCOUNTER → 2024-12-06 10:15 | Outpatient (BNVA) | payer OTHER, SELFPAY | PROVIDERS: PCP Nurse Practitioner; Visit Provider Internal Medicine | DX: E11.65 Type 2 diabetes mellitus with hyperglycemia (principal); E78.2 Mixed hyperlipidemia | CPT/HCPCS: 80053; 80061; 83036; 99214 ==

== ENCOUNTER 2025-03-25 07:32 | Outpatient (RCR) | payer OTHER, SELFPAY | END 2025-04-16 23:59 | disposition home or self-care (01) | LOC: SPT 07:32 | PROVIDERS: Visit Provider Nurse Practitioner | DX: M21.372 Foot drop, left foot (principal) | CPT/HCPCS: 97110; 97162 ==

== ENCOUNTER → 2025-04-01 13:06 | Outpatient (BNVA) | payer OTHER, SELFPAY | PROVIDERS: Visit Provider Internal Medicine Endocrinology, Diabetes & Metabolism | DX: E78.2 Mixed hyperlipidemia (principal); E11.65 Type 2 diabetes mellitus with hyperglycemia | CPT/HCPCS: 99213 ==